=== PATIENT | female | born 1985 | race American Indian/Alaskan Native ===

== ENCOUNTER 2018-03-16 19:11 | Emergency (ER) | payer OTHER ==
[2018-03-16] MEDS ORDERED: Naproxen 550 mg Tab PO STA (19:53)
[2018-03-16] MEDS ORDERED: Naproxen 550 mg Tab PO ONE (20:01)
--- NOTE | 2018-03-16 20:26 | C.PDOC ---
History Of Present Illness 32 year old female presents to the ER with a complaint of pain to the left neck that radiates to the left shoulder and upper back for the past 3 days. Patient states the pain worsens with movement. She tried applying bengay with no relief , she also took one motrin tablet yesterday and one excedrin today with no relief. Denies trauma, dizziness, chest pain, weakness, or numbness. Time Seen by Provider: 03/16/18 19:45 Chief Complaint (Nursing): Upper Extremity Problem/Injury History Per: Patient History/Exam Limitations: no limitations Onset/Duration Of Symptoms: Days Current Symptoms Are (Timing): Still Present Exacerbating Factor(s): Movement Recent travel outside of the [place]: No Past Medical History Reviewed: Historical Data, Nursing Documentation, Vital Signs Vital Signs: Last Vital Signs Temp 98.5 F 03/16/18 19:14 Pulse 68 03/16/18 19:14 Resp 16 03/16/18 19:14 BP 129/83 03/16/18 19:14 Pulse Ox 99 03/16/18 20:27 - Medical History PMH: Arthritis, Asthma, Migraine Family History: States: Unknown Family Hx - Social History Hx Alcohol Use: Yes Hx Substance Use: Yes Review Of Systems Cardiovascular: Negative for: Chest Pain Musculoskeletal: Positive for: Neck Pain, Shoulder Pain, Back Pain Neurological: Negative for: Weakness, Numbness, Dizziness Physical Exam - Physical Exam Appears: Non-toxic Skin: Normal Color, Warm, Dry Head: Atraumatic, Normacephalic Eye(s): bilateral: Normal Inspection Neck: No Midline Cervical Tenderness, Paracervical Tenderness (Left), No Other ( Lateral motion of neck causes pain, no swelling) Back: No Vertebral Tenderness, Other (Left subscapular) Extremity: Normal ROM (x4) Neurological/Psych: Oriented x3, Normal Speech, Normal Motor, Normal Sensation Gait: Steady ED Course And Treatment O2 Sat by Pulse Oximetry: 99 (Room air) Pulse Ox Interpretation: Normal Progress Note: Flexeril and naproxen administered. Patient reports improvement of pain, she is resting comfortably in the ER in no acute distress, vitals are stable, will discharge home with Rx and instructions to follow up with PMD. Disposition Counseled Patient/Family Regarding: Diagnosis - Disposition Disposition: HOME/ ROUTINE Disposition Time: 20:25 Condition: STABLE Additional Instructions: Take medications as directed Apply warm compress to area Follow up with PMD Prescriptions: Cyclobenzaprine [Cyclobenzaprine HCl] 10 mg PO BID #10 tab Naproxen [Naprosyn] 1 tab PO BID PRN #20 tab PRN Reason: Pain Instructions: Torticollis (DC) Forms: Simparel (Filipino) - Clinical Impression Clinical Impression: Torticollis - PA / [employer] / Resident Statement MD/DO has reviewed & agrees with the documentation as recorded. - Scribe Statement The provider has reviewed the documentation as recorded by the Scribjoseph Lagunas All medical record entries made by the Mackenzie were at my direction and personally dictated by me. I have reviewed the chart and agree that the record accurately reflects my personal performance of the history, physical exam, medical decision making, and the department course for this patient. I have also personally directed, reviewed, and agree with the discharge instructions and disposition.
[2018-03-16 20:43] VITALS: BP 120/83; PULSE 80; RESP 18; TEMP 98.9
[2018-03-17 05:53] VITALS: O2SAT 99
== END 2018-03-16 20:42 | disposition home or self-care (01) ==
LOC: C.ER 19:11
DX: M43.6 Torticollis (principal)